=== PATIENT | male | born 1995 | race Caucasian/White ===

== ENCOUNTER 2023-12-07 19:48 | Emergency (ER) | payer BC ==
[2023-12-07] MEDS ORDERED: DIPH,PERTUS(ACELL)TETVAC-LF 0.5 ML VIAL IM ONE (20:43)
[2023-12-07] MEDS ORDERED: KETOROLAC 15 MG/ML 1 ML VIAL IM STA (20:43)
[2023-12-07 20:53] VITALS: TEMP 98
--- NOTE | 2023-12-07 21:10 | XR ---
EXAMINATION TYPE: XR hand complete LT DATE OF EXAM: 12/07/2023 8:56 PM CLINICAL INDICATION:Male, 28 years old with history of s/p dog bite; [facility] COMPARISON: None TECHNIQUE: 3 views of the left hand. FINDINGS: Osseous mineralization appears appropriate. No destructive bony lesion. No acute fracture or dislocat ion. Joint spaces are maintained. Unremarkable soft tissues. No radiopaque foreign body is seen. IMPRESSION: No acute bony abnormality or radiopaque foreign body.
[2023-12-07] MEDS ORDERED: MORPHINE SULFATE 4 MG/ML SYRINGE IM STA (21:51)
[2023-12-07] MEDS ORDERED: BACITRACIN OINT 1 EACH PACKET TOPICAL ONE ×2 (21:51→21:57)
[2023-12-07] MEDS ORDERED: ACET/COD 300 MG/30 MG STARTER PACK 6 TAB BTL PO STA (22:25)
[2023-12-07] MEDS ORDERED: AMOXIC-POT CLAV 875MG STARTER PACK 2 TAB BTL PO STA (22:25)
--- NOTE | 2023-12-07 22:28 | ED ---
Animal Bite HPI - General Chief Complaint: Animal Bite Stated Complaint: dog bite Source: patient, family Mode of arrival: ambulatory Limitations: no limitations - History of Present Illness Initial Comments: 28-year-old male presenting to the ED with a chief complaint of dog bite. Patient states his dog was starting to become possessive over food and prohibiting his other dogs from getting to it and as he tried pulling his dog away his dog bit his left hand. Dog is up-to-date on all vaccinations. Now notes a laceration to his left hand. Tetanus status unknown. No other complaints at this time. - Related Data Previous Rx's Medication Instructions Recorded Acetaminophen Tab [Tylenol] 650 mg PO Q6H #30 tab 12/07/23 Amoxic-Pot Clav 875-125Mg 1 tab PO Q12HR #20 tab 12/07/23 [Augmentin 875-125] Ibuprofen 600 mg PO Q6H #30 tab 12/07/23 Allergies Allergy/AdvReac Type Severity Reaction Status Date / Time No Known Allergies Allergy Verified 12/07/23 20:12 Review of Systems ROS Statement: Those systems with pertinent positive or pertinent negative responses have been documented in the HPI. ROS Other: All systems not noted in ROS Statement are negative. Past Medical History Past Medical History: No Reported History History of Any Multi-Drug Resistant Organisms: None Reported Past Surgical History: Orthopedic Surgery Past Psychological History: No Psychological Hx Reported Smoking Status: Vaper Past Alcohol Use History: Occasional Past Drug Use History: None Reported General Exam Limitations: no limitations General appearance: alert, in no apparent distress Head exam: Present: atraumatic, normocephalic Eye exam: Present: normal appearance Neck exam: Present: normal inspection Respiratory exam: Present: normal lung sounds bilaterally Cardiovascular Exam: Present: regular rate, normal rhythm Extremities exam: Present: other (Left hand shows 2 punctate lesions on the dorsal side and a gaping laceration approximately 3-1/2 cm on the anterior portion of the palm. Strength and sensation intact. Full flexion and extension of the fingers without difficulty.) Neurological exam: Present: alert, oriented X3 Skin exam: Present: warm, dry Course Vital Signs 12/07/23 20:10 Temperature 98 F Pulse Rate 102 H Respiratory 20 Rate Blood Pressure 138/100 O2 Sat by Pulse 98 Oximetry Procedures - Laceration Laceration #1 Site: hand Size (cm): 3 (3.5 cm) Description: linear Depth: simple, single layer Anesthetic Used: lidocaine 1% Anesthesia Technique: local infiltration Amount (mls): 3 Pre-repair: wound explored, irrigated extensively, deep structures intact, extreme cleansing Size of Sutures: 4-0 Number of Sutures: 2 (Wound was very loosely approximated with 2 simple interrupted sutures) Technique: simple, interrupted Patient Tolerated Procedure: well, no complications Medical Decision Making - Medical Decision Making Was pt. sent in by a medical professional or institution (, [facility], [employer] OPERATOR, urgent care, hospital, or long-term...) When possible be specific @ -No Did you speak to anyone other than the patient for history (EMS, parent, family, police, friend...)? What history was obtained from this source @ -No Did you review nursing and triage notes (agree or disagree)? Why? @ -I reviewed and agree with nursing and triage notes Were old charts reviewed (outside hosp., previous admission, EMS record, old EKG, old radiological studies, urgent care reports/EKG's, long-term records)? Report findings @ -No old charts were reviewed Differential Diagnosis (chest pain, altered mental status, abdominal pain women, abdominal pain men, vaginal bleeding, weakness, fever, dyspnea, syncope, headache, dizziness, GI bleed, back pain, seizure, CVA, palpatations, mental health, musculoskeletal)? @ -Differential Musculoskeletal Muscular strain, contusion, ligament sprain, fracture, arthritis, septic arthritis, bursitis, cellulitis, muscle spasm, nerve compression, DVT, arterial occlusion, herpes zoster, electrolyte abnormality, tumor.... This is not meant to be in all inclusive list EKG interpreted by me (3pts min.). @ -None X-rays interpreted by me (1pt min.). @ -X-ray of the left hand interpreted by me showing no evidence of acute bony process. CT interpreted by me (1pt min.). @ -None done U/S interpreted by me (1pt. min.). @ -None done What testing was considered but not performed or refused? (CT, X-rays, U/S, labs)? Why? @ -None What meds were considered but not given or refused? Why? @ -None Did you discuss the management of the patient with other professionals (professionals i.e. , [facility], [employer] OPERATOR, lab, RT, psych nurse, social service agency director, steam shovel runner, teacher, disability insurance hearing officer, case briefer)? Give summary @ -No Was smoking cessation discussed for >3mins.? @ -No Was critical care preformed (if so, how long)? @ -No Were there social determinants of health that impacted care today? How? (Homelessness, low income, unemployed, alcoholism, drug addiction, transportation, low edu. Level, literacy, decrease access to med. care, [facility], rehab)? @ -No Was there de-escalation of care discussed even if they declined (Discuss DNR or withdrawal of care, Hospice)? DNR status @ -No What co-morbidities impacted this encounter? (DM, HTN, Smoking, COPD, CAD, Cancer, CVA, ARF, Chemo, Hep., AIDS, mental health diagnosis, sleep apnea, morbid obesity)? @ -None Was patient admitted / discharged? Hospital course, mention meds given and route, prescriptions, significant lab abnormalities, going to OR and other pertinent info. @ -Discharge 28-year-old male presented to the ED status post dog bite to left hand now with puncture wound and gaping laceration to the left hand. Laceration was repaired. Please see procedure note for further details. Patient provided a starter pack of Augmentin here in the ED. Tetanus updated. Provided prescription for Augmentin, ibuprofen, acetaminophen. Discharged home in stable condition. Discussed strict return precautions with patient and family who verbalized agreement. Undiagnosed new problem with uncertain prognosis? @ -No Drug Therapy requiring intensive monitoring for toxicity (Heparin, Nitro, Insulin, Cardizem)? @ -No Were any procedures done? @ -Yes, laceration repair Diagnosis/symptom? @ -Status post dog bite, left hand pain Acute, or Chronic, or Acute on Chronic? @ -Acute Uncomplicated (without systemic symptoms) or Complicated (systemic symptoms)? @ -Uncomplicated Side effects of treatment? @ -No Exacerbation, Progression, or Severe Exacerbation? @ -No Poses a threat to life or bodily function? How? (Chest pain, [place], [place], pneumonia, PE, COPD, DKA, ARF, appy, cholecystitis, CVA, Diverticulitis, Homicidal, Suicidal, threat to staff... and all critical care pts) @ -No Disposition Clinical Impression: Dog bite Disposition: HOME SELF-CARE Instructions (If sedation given, give patient instructions): Animal Bite (ED) Additional Instructions: Please return to the Emergency Department if symptoms worsen or any other concerns. Please return in 10 to 14 days for suture removal. If having worsening pain please follow-up with Dr. James of hand surgery however if you notice signs of infection please return to the ED for further evaluation. Prescriptions: Amoxic-Pot Clav 875-125Mg [Augmentin 875-125] 1 tab PO Q12HR #20 tab Ibuprofen 600 mg PO Q6H #30 tab Acetaminophen Tab [Tylenol] 650 mg PO Q6H #30 tab Is patient prescribed a controlled substance at d/c from ED?: No Referrals: None,Stated [Primary Care Provider] - 1-2 days Diana James DO [Doctor of Osteopathic Medicine] - 1-2 days Time of Disposition: 22:35
[2023-12-07 22:54] VITALS: BP 136/92; PULSE 76; RESP 17
== END 2023-12-07 22:49 | disposition home or self-care (01) ==
LOC: EC 19:48
DX: S61.452A Open bite of left hand, initial encounter (principal); F17.290 Nicotine dependence, other tobacco product, uncomplicated; Z23 Encounter for immunization; W54.0XXA Bitten by dog, initial encounter
CPT/HCPCS: 73130; 90715; 99283; 90471; 96372 ×2; 12002; J2270; J1885